=== PATIENT | female | born 1975 | race Caucasian/White ===

== ENCOUNTER 2017-01-06 02:44 | Emergency (ER) | payer OTHER ==
[~2017-01-06] VITALS: Ht 149.9 cm; Wt 57.9 kg
[~2017-01-06 02:44] MED LIST: ANAPROX DS550 M1 PO; BACTRIM,SEPT1 TABLET PO; CIPRO500 MG PO; FLEXERIL10 MG PO; FLOMAX0.4 MG PO; MOBIC7.5 MG PO; NOHOMEMEDS; PERCOCET 5/31 TABLET PO; PREDNISONE20 MG PO; ZOFRAN ODT4 MG PO; ZOFRAN4 MG PO
[2017-01-06 03:06] LABS: HEMATOCRIT 42.8 % (36.0-46.0); MCH 30.8 PG (29.0-34.0); MCHC 33.9 G/DL (30.0-36.0); MCV 90.9 FL (83-99); MEAN PLAT.VOLUME 10.1 uM^3 (9.5-12.4); PLATELET COUNT 242 K/uL (156-360); RBC DIS.WIDTH-CV 11.9 % (11.8-14.6); RBC DIS.WIDTH-SD 39.6 % (39-53); RED BLOOD COUNT 4.71 M/uL (3.80-5.20)
[2017-01-06 03:13] LABS: CHLORIDE 104 mEq/L (99-109); SODIUM 138 mEq/L (136-147)
[2017-01-06 03:16] LABS: GLUCOSE 129 mg/dL (70-99)
[2017-01-06 03:17] LABS: ANION GAP 11 MEQ/L (2-14)
[2017-01-06 03:18] LABS: TOTAL BILIRUBIN 0.4 mg/dL (0.0-1.0)
[2017-01-06 03:19] LABS: ALKALINE PHOSPHATASE 87 IU/L (3-129)
[2017-01-06 03:20] LABS: GFR ESTIMATE (CALCULATED) 48 mL/min/
[2017-01-06 03:21] LABS: DIRECT BILIRUBIN 0.1 mg/dL (0.0-0.3); UREA NITROGEN (BUN) 18 mg/dL (9-23)
[2017-01-06 03:23] LABS: LIPASE 34 U/L (1.0-51.0)
[2017-01-06 05:16] LABS: ADD MIUA? YES; BILIRUBIN SMALL; BLOOD MODERATE; COLOR AMBER ((YELLOW)); GLUCOSE (STRIP) NEGATIVE; KETONES 5; LEUKOCYTES MODERATE; NITRITE NEGATIVE; PROTEIN (STRIP) 100; SPECIFIC GRAVITY 1.033 (1.000-1.030); UROBILINOGEN 0.2 MG/DL (0.2-1.0)
[2017-01-06 05:28] LABS: BACTERIA NONE SEEN /HPF; EPITHELIAL CELLS 4+ /HPF; MUCUS 1+ /LPF; RED BLOOD CELLS 0-5 /HPF (0-5); UCUL ADDED? NO
[2017-01-06] MEDS ORDERED: PERCOCET 5/31 TABLET PO (06:30)
[2017-01-06] MEDS ORDERED: ZOFRAN4 MG PO (06:30)
[2017-01-06] MEDS ORDERED: MOTRIN600 MG PO (06:30)
[2017-01-06 06:39] VITALS: BP 145/94
== END 2017-01-06 06:40 | disposition home or self-care (01) ==
LOC: EME 02:44
DX: N13.2 Hydronephrosis with renal and ureteral calculous obstruction (principal); R31.9 Hematuria, unspecified; J45.909 Unspecified asthma, uncomplicated
CPT/HCPCS: 74176; 80048; 80076; 81003; 83690; 85027; 99281; 99284; J1885; J2270; J2405

== ENCOUNTER 2017-03-14 17:08 | Emergency (ER) | payer OTHER ==
[~2017-03-14] VITALS: Ht 149.9 cm; Wt 57.6 kg
[~2017-03-14 17:08] MED LIST changes: +MOTRIN600 MG PO
[2017-03-14 18:15] LABS: HEMATOCRIT 36.2 % (36.0-46.0); MCH 30.6 PG (29.0-34.0); MCHC 33.4 G/DL (30.0-36.0); MCV 91.4 FL (83-99); MEAN PLAT.VOLUME 9.2 uM^3 (9.5-12.4); PLATELET COUNT 250 K/uL (156-360); RBC DIS.WIDTH-CV 11.7 % (11.8-14.6); RBC DIS.WIDTH-SD 39.3 % (39-53); RED BLOOD COUNT 3.96 M/uL (3.80-5.20); WHITE BLOOD COUNT 6.4 K/uL (4.1-10.2)
[2017-03-14 18:24] LABS: CHLORIDE 104 mEq/L (99-109); POTASSIUM 4.1 mEq/L (3.7-5.4); SODIUM 140 mEq/L (136-147)
[2017-03-14 18:25] LABS: GLUCOSE 91 mg/dL (70-99)
[2017-03-14 18:27] LABS: ANION GAP 7 MEQ/L (2-14)
[2017-03-14 18:29] LABS: GFR ESTIMATE (CALCULATED) > 59 mL/min/
[2017-03-14 18:30] LABS: UREA NITROGEN (BUN) 10 mg/dL (9-23)
[2017-03-14] MEDS ORDERED: ANUSOL-HC21 GM PR (18:43)
[2017-03-14 19:01] VITALS: BP 130/86
== END 2017-03-14 19:21 | disposition home or self-care (01) ==
LOC: EME 17:08
PROVIDERS: Physician Assistant Medical
DX: K64.9 Unspecified hemorrhoids (principal); K62.5 Hemorrhage of anus and rectum; D86.9 Sarcoidosis, unspecified; J45.909 Unspecified asthma, uncomplicated
CPT/HCPCS: 80048; 85027; 99281; 99284